=== PATIENT | male | born 1970 | race Two or more races ===

== ENCOUNTER 2024-01-11 14:29 | Emergency (ER) | payer OTHER ==
[~2024-01-11] VITALS: Ht 175.3 cm; Wt 103.4 kg
[~2024-01-11 14:29] MED LIST: DICLOFENAC SODI75 MG PO; GLYXAMBI 10 MG1 EACH PO; KETO10TA2 PO; SKELAXIN800 MG PO; TRAMADOL HCL50 MG PO
[2024-01-11 16:20] LABS: HEMATOCRIT 46.1 % (39.0-48.0); HEMOGLOBIN 16.2 g/dL (13-16.00); MEAN CELL VOLUME 81.2 fL (80.0-100.00); MEAN CORPUSCULAR HEMOGLOBIN 28.4 pg (27.00-32.0); PLATELET COUNT 307 K/uL (150-450); RED BLOOD COUNT 5.68 M/uL (4.00-6.00); RED CELL DISTRIBUTION WIDTH 13.7 % (11.5-14.5)
[2024-01-11 17:00] LABS: ALBUMIN 3.8 gm/dL (3.4-5.0); BILIRUBIN TOTAL 0.82 mg/dL (0.3-1.2); BILIRUBIN,CONJUGATED 0.21 mg/dL (0.0-0.2); BILIRUBIN,UNCONJUGATED 0.61 mg/dL (0.0-0.6); CALCIUM 8.9 mg/dL (8.5-10.1); CREATININE SERUM 0.95 mg/dL (0.70-1.30); GFR 83.58; POTASSIUM 4.05 mEq/L (3.5-5.1); TOTAL PROTEIN 7.9 gm/dL (6.4-8.2)
== END 2024-01-11 21:13 | disposition home or self-care (01) ==
LOC: ER 14:29
PROVIDERS: General Practice
DX: M94.0 Chondrocostal junction syndrome [Tietze] (principal); E11.9 Type 2 diabetes mellitus without complications

== ENCOUNTER 2024-09-03 14:14 | Emergency (ER) | payer OTHER ==
[~2024-09-03] VITALS: Ht 175.3 cm; Wt 103.4 kg
[2024-09-03 17:19] LABS: BASO % 0.6 % (0.1-1.2); EOS # 0.16 (0.04-0.54); EOS % 1.7 % (0.7-7.0); HEMATOCRIT 45.1 % (40.1-51.0); HEMOGLOBIN 15.7 g/dL (13.7-17.5); LYMPH # 2.02 (1.18-3.74); LYMPH % 21.8 % (19.3-53.1); MEAN CORPUSCULAR HEMOGLOBIN 27.7 pg (25.6-32.2); MONO # 0.85 (0.24-0.82); MONO % 9.2 % (4.7-12.5); NEUT % 66.1 % (34.0-71.1); PLATELET COUNT 260 K/uL (163-369); RED BLOOD COUNT 5.67 M/uL (4.63-6.08)
[2024-09-03 17:45] LABS: CALCIUM 8.8 mg/dL (8.5-10.1); CREATININE SERUM 1.22 mg/dL (0.70-1.30); GFR 62.38; POTASSIUM 3.96 mEq/L (3.5-5.1)
[2024-09-03] MEDS ORDERED: KETOROLAC TROMETHAMINE 30 MG VIAL IM STA (17:52)
[2024-09-03] MEDS ORDERED: KETOROLAC TROMETHAMINE 30 MG VIAL ONE (18:19)
== END 2024-09-03 20:14 | disposition home or self-care (01) ==
LOC: ER 14:43
PROVIDERS: General Practice
DX: M94.0 Chondrocostal junction syndrome [Tietze] (principal)